=== PATIENT | male | born 1945 | race Caucasian/White ===

== ENCOUNTER 2025-07-07 14:48 | Outpatient (CLI) | payer MEDICARE, BC, SELFPAY | END 2025-07-07 14:49 | disposition home or self-care (01) | PROVIDERS: Visit Provider Emergency Medicine Emergency Medical Services | DX: S09.90XA Unspecified injury of head, initial encounter (principal); W17.89XA Other fall from one level to another, initial encounter; Y92.481 Parking lot as the place of occurrence of the external cause | CPT/HCPCS: A0425; A0429 ==

== ENCOUNTER 2025-07-07 15:19 | Emergency (ER) | payer MEDICARE, BC, SELFPAY ==
[2025-07-07 15:23] VITALS: BP 124/79; PULSE 89; RESP 16; TEMP 36.6; O2SAT 96; BMI 24.4
--- NOTE | 2025-07-07 15:23 | CRLHL7_ITS ---
For Patients: As a result of the Century Cures Act, medical imaging exams and procedure reports are released immediately into your electronic medical record. You may view this report before your referring provider. If you have questions, please contact your health care provider. INDICATION: Trauma. TECHNIQUE: CT head without contrast. COMPARISON: None. FINDINGS: CSF spaces: Within normal limits for age. Brain parenchyma and extra-axial spaces: The garcía-white differentiation is normal. No sign of mass, hemorrhage, or midline shift. No extra-axial fluid collection. Skull base and calvarium: Right parieto-occipital scalp hematoma. The visualized paranasal sinuses and mastoid air cells demonstrate no acute or significant findings. The visualized orbits are grossly unremarkable. No skull fractures. IMPRESSION: Right parieto-occipital scalp hematoma. No acute intracranial abnormality. Please note that all CT scans at this facility use dose modulation, iterative reconstruction, and/or weight-based dosing when appropriate to reduce radiation dose to as low as reasonably achievable. Dictated by Uli Glover MD @ 07/07/2025 4:09:08 PM (Electronically Signed)
--- NOTE | 2025-07-07 15:23 | CRLHL7_ITS ---
For Patients: As a result of the Century Cures Act, medical imaging exams and procedure reports are released immediately into your electronic medical record. You may view this report before your referring provider. If you have questions, please contact your health care provider. Indication: Fall, head trauma. Technique: Noncontrast CT of the cervical spine with multiplanar reconstruction utilizing bone and soft tissue algorithms. Comparison: None available. Findings: No acute fracture or traumatic subluxation. No lytic or blastic lesion. Small gas-filled cavity within C6 vertebral body which is likely degenerative in etiology. Grade 1 3 mm anterolisthesis of C4 on C5. Vertebral body heights are maintained. Multilevel disc height loss is most pronounced from C5-C7. Mild spinal canal stenosis at C5-C6 results from disc bulging and endplate osteophytic ridging. Multilevel neural foraminal narrowing is moderate-severe on the left at from C2-C5 and bilaterally at C5-C6 and C6-C7. Impression: 1. No acute fracture or traumatic subluxation. 2. Advanced cervical spondylosis with mild spinal canal stenosis at C5-C6 and multilevel moderate-severe neural foraminal narrowing. Please note that all CT scans at this facility use dose modulation, iterative reconstruction, and/or weight-based dosing when appropriate to reduce radiation dose to as low as reasonably achievable. Dictated by Gautam Campbell MD @ 07/07/2025 4:14:14 PM (Electronically Signed)
--- NOTE | 2025-07-07 15:35 | ED.HEATRA ---
HPI - Head Injury General Date Seen: 07/07/25 Chief complaint: Head Injury/Pain Stated complaint: Fell Time Seen by Provider: 07/07/25 15:22 Source: patient and EMS Mode of arrival: EMS Limitations: no limitations History of Present Illness HPI Narrative: Patient is a 79-year-old male with no pertinent medical history who only takes a baby aspirin daily presenting to the emergency department via EMS after hitting his head. He states he was loading something in the back of his [place] when he took a step backwards and stepped off the tailgate. This causing the fall straight onto his back and his head on concrete. He was able get up after this. Denies any lightheadedness or dizziness before or after the fall. He states he feels fine currently. Denies any neck pain. Denies a headache. Denies weakness, numbness, vision changes, chest pain, shortness of breath, abdominal pain, extremity pain. He states he has no other concerns at this time. States he only came to emergency department because EMS stated he had large laceration on the back of his head that needed sutures. Related Data Home Medications ?Medication ?Instructions ?Recorded ?Confirmed aspirin 81 mg tablet,delayed 81 mg PO DAILY 07/07/25 07/07/25 release (Adult Low Dose Aspirin) hydrochlorothiazide PO 07/07/25 Allergies Allergy/AdvReac Type Severity Reaction Status Date / Time No Known Drug Allergies Allergy Verified 07/07/25 15:25 Review of Systems Status of ROS: Reports: 10 or more systems reviewed and unremarkable except as noted in History and below Exam Narrative: Exam Narrative: Const: Well-nourished, Well-developed, in no distress Eyes: PERRL, no conjunctival injection, and symmetrical lids HENT: Atraumatic external nose and ears. Moist mucous membranes. No palpable skull fractures. Large hematoma on right upper occiput region of skull. 6.5 cm laceration on back of head. Neck: Symmetric, trachea midline, No thyromegaly. CVS: RRR, No murmurs or gallops. Peripheral pulses 2+ and equal in all extremities RESP: Unlabored respiratory effort. Clear to auscultation bilaterally. GI: Nontender/Nondistended, No rebound or guarding. MSK:Extremities w/o deformity, Normal Active ROM, no spinal tenderness Skin: Warm, Dry. No rashes or lesions. Neuro: Normal Muscle tone, No focal neurological deficits. Psych: Awake, Alert, & Oriented x3. Appropriate mood and affect. Const: Vital Signs, click to edit/add: Vital Signs - 24 hr 07/07/25 15:23 Temperature 97.9 F Pulse Rate [Pulse Oximeter] 89 Respiratory Rate 16 Blood Pressure [Ri ght Upper Arm] 124/79 Pulse Oximetry 96 Oxygen Delivery Me thod Room Air Course Vital Signs Vital signs: Initial Vital Signs Temperature 97.9 F 07/07/25 15:23 Temperature Source Temporal Artery Scan 07/07/25 15:23 Pulse Rate 89 07/07/25 15:23 Respiratory Rate 16 07/07/25 15:23 Blood Pressure 124/79 07/07/25 15:23 Blood Pressure Mean 94 07/07/25 15:23 Blood Pressure Position Sitting 07/07/25 15:23 Pulse Oximetry 96 07/07/25 15:23 Oxygen Delivery Method Room Air 07/07/25 15:23 Vital Signs Temperature 97.9 F 07/07/25 15:23 Pulse Rate 89 07/07/25 15:23 Respiratory Rate 16 07/07/25 15:23 Blood Pressure 124/79 07/07/25 15:23 Pulse Oximetry 96 07/07/25 15:23 Oxygen Delivery Method Room Air 07/07/25 15:23 Temperature 97.9 F 07/07/25 15:23 Pulse Rate 89 07/07/25 15:23 Respiratory Rate 16 07/07/25 15:23 Blood Pressure 124/79 07/07/25 15:23 Pulse Oximetry 96 07/07/25 15:23 Oxygen Delivery Method Room Air 07/07/25 15:23 MDM - Head Injury MDM Narrative Medical decision making narrative: Patient is a 79-year-old male presenting after a fall. He has laceration hematoma on the back his head. No midline spinal tenderness. Is not having any neck pain. Is not having any tenderness to rest of his extremities, chest, abdomen. Due to his age I will do CT scan of his head and cervical spine. I do not believe lab work is necessary at this time. CT scans reviewed by myself and the radiologist showed no acute concerning abnormalities. Laceration repair was done. Seven sutures were placed. He tolerated the procedure well. See procedure note. Imaging Data CT scan head: Attestation: I have reviewed the pertinent imaging results. Radiologist's impression: Right parieto-occipital scalp hematoma. No acute intracranial abnormality. Please note that all CT scans at this facility use dose modulation, iterative reconstruction, and/or weight-based dosing when appropriate to reduce radiation dose to as low as reasonably achievable. Dictated by Uli Glover MD @ 07/07/2025 4:09:[address] scan cervical spine: Attestation: I have reviewed the pertinent imaging results. Radiologist's impression: 1. No acute fracture or traumatic subluxation. 2. Advanced cervical spondylosis with mild spinal canal stenosis at C5-C6 and multilevel moderate-severe neural foraminal narrowing. Please note that all CT scans at this facility use dose modulation, iterative reconstruction, and/or weight-based dosing when appropriate to reduce radiation dose to as low as reasonably achievable. Dictated by Gautam Campbell MD @ 07/07/2025 4:14:14 PM Discharge Plan Discharge Clinical Impression: Laceration Closed head injury Qualifiers: Encounter type: initial encounter Qualified Code(s): S09.90XA - Unspecified injury of head, initial encounter Patient Disposition: Home, Self-Care Condition: Stable Instructions: Head Injury (DC) Additional Instructions: Follow-up with your primary care provider or urgent care in the next 7 days to have the 7 sutures removed. For next 6 months, once sutures are removed, whenever you go outside put a dab of sunscreen over the laceration site to improve scar appearance. Topical antibiotics are not necessary at this time. Patient can shower but do not submerge the laceration until sutures are removed Prescriptions: No Action hydrochlorothiazide PO aspirin [Adult Low Dose Aspirin] 81 mg tablet,delayed release (DR/EC) 81 mg PO DAILY Follow Up/Referrals: Provider,Not a Local [Primary Care Provider, Family Practice] Stand Alone Forms: [facility] Info Instructions Procedures Laceration Scalp: Name of person performing procedure: Ben Moreno Site: scalp Side (If applicable): right Size (cm): 6.5 Description: irregular Depth: simple, single layer Local Anesthetic: lidocaine 1% Amount of anesthesia used (mL): 5 Pre-repair: wound explored, irrigated extensively and deep structures intact Skin layer closed with: nylon Size (cm): 4-0 Number of sutures: 7 Technique: simple, interrupted Estimated blood loss (if any): none Conclusion: patient tolerated procedure
--- OUTSIDE RECORDS SUMMARY | 2025-07-07 15:44 | XMS_ITS | Clinical Summary ---
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 Primary Care Provider Source Comments Patient records contain information from all sites at [facility]. For routine questions regarding patient records, call [phone] during business hours, M-F 8:00 AM - 5:00 PM Central Time. Record requests for emergency care only can be directed to [phone] at any time.[facility] Allergies Active Allergy Reactions Criticality Noted Date Comments Lisinopril Cough 02/08/2022 Medic[address] tablet Take 1 tablet by mouth daily. 06/03/2016 Active pravastatin (PravachoL) 20 mg tablet TAKE 1 TABLET BY MOUTH AT BEDTIME 90 tablet 3 09/29/2024 Active triamterene-hyd roCHLOROthiazid e (Dyazide) 37.5-25 mg per capsule Take 1 capsule by mouth once daily 90 capsule 3 09/29/2024 Active Active Problems Patient Care Coordination No te Formatting of this note migh t be different from the original. MIRZA on file for Paulyesteban Wiley, Patients spouse. MIRZA good for life unless patient revokes. 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 07/19/2021 Overview (06/29/2018): MRSA Cataract 06/10/2016 07/02/2019 Amnesia Transient Global 06/03/2016 Cancer Colon Family History 06/03/2016 07/02/2019 Fatigue 06/03/2016 07/02/2019 Immunizations Immunization Administration Dates Next Due HZV (ZOSTAVAX) 01/08/2012 Influenza high dose QV(65 ye ars or older) (PF) 07/25/2023,07/19/2022,07/19/2021,2019 Influenza, Unspecified 06/26/2017,06/03/2016, PCV13 05/03/2015 PPSV23 03/21/2014 RZV (SHINGRIX) 07/21/2020,08/09/2019 SARS-COV-2 (COVID-19) - MODERNA(Discontinued) 01/01/2021,11/30/2020 SARS-COV-2 (COVID-19) - PFIZ ER (Discontinued)(12 years or older) 02/11/2023(Deferred: Patient decision) Td (Adult), adsorbed 06/25/2012 Td, (Adult) Unspecified 01/02/1993 Tdap 08/09/2017,11/20/2007 influenza trivalent high dos e (HD)(PF) 07/28/2024,07/02/2019,06/29/2018 Family History Medical History Relation Name Comments Hypertension Daughter 1 Mckenna Thyroidectomy Daughter 1 Mckenna Hypertension Daughter 2 Janiya Coronary artery disease Father Emanuel Moody Wiley He art valve replacement in 1984, in 1994 from heart attack. Heart attack Father Emanuel Wiley Sleep apnea Father Emanuel Wiley Transient ischemic attack Father's Sister Alejandra Farris Carlie) Cadwallader Colon cancer Maternal Grandfather St. Lucie Denler Heart attack Maternal Grandmother Ashlyn Arthritis Mother Cecilia Weiner (Jose Rler) Saurabh Stroke Mother Cecilia Weiner (Jose Rler) Saurabh Heart attack Paternal Grandfather Justus Stroke Paternal Grandmother Josaphine Hypertension Sister 1 Yarelis Coronary artery disease Sister 2 Eladia Flores (Saurabh) Ray Heart stent in 2919, age 74. Hypertension Sister 2 Eladia Flores (Wiley ) Ray Stent placement Sister 2 Eladia Flores (Wiley ) Ray Coronary artery disease Sister 3 Yarelis A (Wiley) Rohloff Heart attack 08/2023, age 67; carotid artery cleaned 09/2023. Heart attack Sister 3 Yarelis A (Gile s) Rohloff Hypertension Sister 3 Yarelis A (Gile s) Rohloff Hypertension Son Bob Stroke Son Bob Relation Name Status Comments Daughter 1 Mckenna Alive Daughter 2 Janiya Alive Father Emanuel Moody Wiley (Age 72) Father's Brother Dylan Father's Sister Alejandra Farris (Saurabh) Cadkarolyn Maternal Grandfather St. Lucie Jose Ryesi Maternal Grandmother Ashlyn Mother Cecilia Weiner (Vahe) Saurabh Alive Paternal Grandfather Justus Paternal Grandmother Lenchophine Sister 1 Yarelis Alive Sister 2 Eladia Flores (Saurabh) Ray Alive Sister 3 Yarelis Ware (Wiley) Hiraloff Alive Son Bob Alive Social History Tobacco Use Types Packs/Day Years Used Date Smoking Tobacco: Never Smokeless Tobacco: Never Tobacco Cessation:Counseling Given: Not Answered Alcohol Use Standard Drinks/Week Comments Yes 1 (1 standard drink = 0.6 oz pur e alcohol) one time monthly [facility] Utilities Answer Date Recorded In the past 12 months has e Doist, gas, oil, or water [employer] threatened to shut off services in your home? No 07/23/2024 Humiliation, Afraid, Rape, and Kick questionnair e Answer Date Recorded Within the last year, have y ou been afraid of your partner or ex-partner? No 02/04/2023 Within the last year, have y ou been humiliated or emotionally abused in other ways by your partner or ex-partner? No Within the last year, have y ou been kicked, hit, slapped, or otherwise physically hurt by your partner or ex-partner? No 02/04/2023 Within the last year, have y ou been raped or forced to have any kind of sexual activity by your partner or ex-partner? No 02/04/2023 Hunger Vital Sign Answer Date Recorded Within the past 12 months, y ou worried that your food would run out before you got the money to buy more. Never true 07/23/20 24 Within the past 12 months, t he food you bought just didn't last and you didn't have money to get more. Never true 07/23/2024 PRAPARE - Transportation Answer Date Re corded In the past 12 months, has l ack of transportation kept you from medical appointments or from getting medications? No 07/09 In the past 12 months, has l ack of transportation kept you from meetings, work, or from getting things needed for daily living? No 07/23/2024 Depression Answer Date Recor ded PHQ-9 Total Score (max 27) 0 02/08 Housing Stability Answer Date Recorded What is your living situation today? I have a [facility] place to live 07/23/2024 Education Answer Date Recorded What is the highest level of school you have completed or the highest degree you have received? Bachelor's degree (e.g., BA, AB, BS) 07/09/2019 Sex and Gender Information Value Date Recorded Sex Assigned at Male 08/09/2017 11:05 AM [employer] WORK[employer] Legal Sex Male 11:13 PM [employer] Gender Identity Male 08/09/2017 11:05 AM [employer] Sexual Orientation Straight 08/09/2017 11 :05 AM [employer] Occupation Industry Job Start Date Job End Date Not on file Not on file Not on file Not on file Last Filed Vital Signs Vital Sign Reading Time Taken Comments Blood Pressure 114/75 12/23/2024 7:56 AM CDT Pulse 73 12/23/2024 7:56 AM CDT Temperature 35.8 C (96.4 F) 12/23/2024 7:56 AM CDT Respiratory Rate 16 12/23/2024 7:56 AM CDT Oxygen Saturation 98% 02/11/2023 8:30 AM CDT Inhaled Oxygen Concentration - - Weight 80.9 kg (178 lb 5.6 oz) 12/23/2024 7:56 A M CDT Height 177.3 cm (5' 9.8) 12/23/2024 7:56 AM CDT Body Mass Index 25.74 12/23/2024 7:56 AM CDT Plan of Treatment Upcoming Encounters Date Type Department Care Team (Late st Contact Info) Description 07/28/2025 8:50 AM [employer] Appointment Department of Laboratory Medicine in [place], [place] [address] [place] [address] Gurmeet Murphy, P.A.-C. [address] [place] [address] 08/03/2025 1:00 PM [employer] Office Visit Department of Family Medicine, [facility], in [place], [place] [address] [place] [address] Gurmeet Murphy, P.A.-C. [address] [place] [address] Health Maintenance Due Date Last Done Comments RSV vaccine - (32-36 weeks) or 50+ years (1 - 1-dose 75+ series) 11/30/2022 COVID-19 Vaccine ( - season) 2025 01/01/2021, 11/30/2020 Influenza Vaccine (#1) 2025 , 07/25/2023, 07/19/2022, Additional history exists Creatinine Level (Kidney Function Test) 07/26/2025 07/26/2024, 07/21/2023, 07/19/2022, Additional history exists Potassium Level 07/26/2025 07/26/2024, 07/09, 07/19/2022, Additional history exists Sodium Level 07/26/2025 07/26/2024, 07/09, 07/19/2022, Additional history exists Visit: Chronic Disease, age 18+ 07/28/2025 07/28/2024 Visit: Medicare Annual Wellness 07/29/2025 07/28/2024 Office Visit for Blood Pressure Check / Re-check 12/23/2025 12/23/2024 DTaP,Tdap,and Td Vaccines (4 - Td or Tdap) 08/09/2027 08/09/2017, 06/25/2012, 11/20/2007, Additional history exists Pneumococcal vaccine (50+ years) Completed 05/03/2015, 03/21/2014 Hepatitis C Screening Completed 06/29/2019 Zoster Vaccines Completed 07/21/2020, 10/2018, 01/08/2012 Colonoscopy Discontinued 02/05/2023, 01/06/2013 Colorectal Cancer Screening Discontinued Colorectal Cancer Surveillance Discontinued Depression Screening (Annual PHQ-2) Completed 12/23/2024, 12/22/2024 Fall Risk Screen (Annual) Completed 12/23/[address] Colonography Discontinued Cologuard Discontinued FIT Discontinued IPV Vaccines Aged Out No longer eligi ble based on patient's age to complete this topic Goals Goal Patient Goal Type Associated Problems Recent Progress Patient-Stated? Author Eat a balanced, healthy diet Diet No Marlene Maynard R.N. Note: Continue 30 minutes 3x a week Exercise No Marlene Maynard R.N. Note: Continue Medical Devices Implanted Type Area Chocolate Refining Roller Device Identifier Shelf Expiration Date Model / Serial / Lot Shoulder Implant-07/04 Implanted: by Darrell Corley M.D. (Quantity not on file) Shoulder Implant Right: Shoulder [employer] / / Procedures Procedure Name Priority Date/Time Associated Diagnosis Comments COMPREHENSIVE METABOLIC PANEL, S/P Routine 07/26/2024 8:34 AM [employer] Hypertension Essential Primary Hyperlipidemia Screening Examination Prostate Cancer HCV AB SCRN W/REFLEX TO HCV PCR, S Routine 06/29/2019 8:53 AM CDT Screening Test Laboratory from Last 3 Months or Most Recently Relevant to Health Maintenance Results * Comprehensive Metabolic Panel (07/26/2024 8:34 AM [employer] WORK[employer]) Pathologist [facility] Potassium, P 4.1 3.6 - 5.2 mmol/L 07/26/2024 2:49 PM [employer] WORK[employer] OWAT Sodium, P 143 135 - 145 mmol/L 07/26/2024 2:49 PM [employer] OWAT Chloride, P 105 98 - 107 mmol/L 07/26/2024 2:49 PM [employer] OWAT Bicarbonate, P 26 22 - 29 mmol/L 07/26/2024 2:49 PM [employer] OWAT Anion Gap, P 12 7 - 15 07/26/2024 2:49 PM [employer] WORK[employer] OWAT BUN (Blood Urea Nitrogen), P 20 8 - 24 mg/dL 07/26/2024 2:49 PM [employer] WORK[employer] OWAT Creatinine 1.16 0.74 - 1.35 mg/dL 07/26/2024 2:49 PM [employer] WORK[employer] OWAT Estimated GFR (eGFR) 65 >=60 mL/min/BS A 07/26/2024 2:49 PM [employer] WORK[employer] OWAT Comment: Estimated GFR calculated using the 2020 CKD_EPI creatinine equation. Calcium, Total, P 8.9 8.8 - 10.2 mg/dL 07/26/2024 2:49 PM [employer] OWAT Glucose, P 108 70 - 140 mg/dL 07/26/2024 2:49 PM [employer] OWAT Protein, Total, P 7.2 6.3 - 7.9 g/dL 07/26/2024 2:49 PM [employer] OWAT Albumin, P 4.3 3.5 - 5.0 g/dL 07/26/2024 2:49 PM [employer] OWAT Aspartate Aminotransferase (AST), P 26 8 - 48 U/L 07/26/2024 2:49 PM [employer] OWAT Alkaline Phosphatase, P 80 40 - 129 U/L 07/26/2024 2:49 PM [employer] OWAT Alanine Aminotransferase (ALT), P 16 7 - 55 U/L 07/26/2024 2:49 PM [employer] WORK[employer] OWAT Bilirubin, Total, P 0.5 0.0 - 1.2 mg/dL 07/26/2024 2:49 PM [employer] WORK[employer] OWAT Blood (Blood, Venous) 07/26/2024 8:34 AM SOC[employer] WORK[employer]ERS 07/26/2024 1:16 PM [employer] Gurmeet Murphy P.A.-C. LAB BLOOD ADD-ON Final Result [facility] [address] [place] [address], [place] OWAT [facility] [place] [address] [place] [address] * HCV Ab Scrn w/Reflex to HCV PCR, Serum (06/29/2019 8:53 AM CDT) HCV Ab Screen, S Negative Negative 06/30/2019 9:50 AM CDT [facility] Comment:Doozvy-rl-siclyx rat io is <1.00. Blood (Blood, Venous) 06/29/2019 8:53 AM CDT 06/30/2019 8:21 AM CDT us Sidra Edward M.D. LAB MICROBIOLOGY - BLOOD ORDERAB LES Final Result Performing Organization Address City/[facility]/ZIP Co de Phone Number [facility] [address] [place] [address] [facility] Dept. of Laboratory Medicine and Pathology [address] [place] [address] from Last 3 Months or Most Recently Relevant to Health Maintenance Insurance MEDICARE [facility] [[email or web address]] Advance Directives For more information, please contact: [phone] Documents on File Type Date Recorded Patient Layout Technician Adenike anatmark Advance Directives 08/10/2019 3:52 PM Heal th Care Directive Healthcare Agents on File Name Relationship Healthcare Agent Relationsca p Communication Pauly Wiley Spouse Health Care Agent [email or web address] Janiya Marroquin Daughter First Alternate Health Care Agent Care Teams Wire Mill Operator Relationship Specialty Start Date End Date Gurmeet Murphy P.A.-C. [address] [place] [phone] PCP - General Family Medicine 05/03/20
--- OUTSIDE RECORDS SUMMARY | 2025-07-07 15:44 | XMS_ITS | Clinical Summary ---
Author Organization [facility] Address [address] [place] [address] Care Team Providers Care Strip Tank Tender Name Role Phone Gurmeet Murphy Primary Care Provider [phone] Allergies Active Allergy Reactions Criticality Noted Date Comments Lisinopril Cough 01/30/2023 Medications pravastatin (PRAVACHOL) 10 mg tablet Take 20 mg by mouth once daily with evening meal. Active triamterene-hyd rochlorothiazid e, 37.5-25 mg, (DYAZIDE) 37.5-25 mg capsule Take 1 Capsule by mouth once daily. 07/19/2022 Active aspirin 81 mg cap Take by mouth once daily. Active glucosamine/cho ndr miller A sod (OSTEO BI-FLEX ORAL) Take 1,500 mg by mouth once daily. Active Active Problems Problem Noted Date Diagnosed Date Primary osteoarthritis of right shoulder 020 Traumatic complete tear of left rotator cuff Immunizations Immunization Administration Dates Next Due Influenza, High-dose Inactivated 06/03/2016 Influenza, IIV4 (=>6mos) MDV 06/26/2017,07/26/20 14 Pneumococcal Poly,23-Valent (Pneumovax) 03/21/20 14,02/19/2014 Pneumococcal conj 13-Valent (Prevnar 13) 015 Td (Age >=7 Years) 01/02/1993 Tdap 06/25/2012,11/20/2007 Zoster (Zostavax-ZVL, live) 01/08/2012 Social History Tobacco Use Types Packs/Day Years Used Date Smoking Tobacco: Never Smokeless Tobacco: Never Tobacco Cessation:Counseling Given: No Alcohol Use Standard Drinks/Week Comments Yes 0 (1 standard drink = 0.6 oz pur e alcohol) 1 month Sex and Gender Information Value Date Recorded Sex Assigned at Not on file 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 Gender Identity Not on file Sexual Orientation Not on file Obstetrics History Last Filed Vital Signs Vital Sign Reading Time Taken Comments Blood Pressure 108/62 02/05/2023 8:45 AM CDT Pulse 68 02/05/2023 8:45 AM CDT Temperature 36.3 C (97.4 F) 02/05/2023 8:00 AM CDT Respiratory Rate 16 02/05/2023 8:45 AM CDT Oxygen Saturation 95% 02/05/2023 8:45 AM CDT Inhaled Oxygen Concentration - - Weight 79.6 kg (175 lb 6.4 oz) 02/05/2023 6:45 A M CDT Height 177.5 cm (5' 9.88) 01/22/2023 11:05 AM C DT Body Mass Index 25.25 01/22/2023 11:05 AM CDT Plan of Treatment Health Maintenance Due Date Last Done Comments Depression screening for age 12+ 1959 BMI (ht and wt on same day) for age 18+ 11/30/1965 Hepatitis C screening for ag e 18-79 11/30/1965 Zoster (shingles) series for age 50+ (2 of 3) 03/04/2012 01/08/2012 Tetanus booster 06/25/2022 06/25/2012, 11/20/2007, 01/02/1993 RSV vaccine for adults or (1 - 1-dose 75+ series) 11/30/2022 Influenza Vaccine (#1) 2025 7, 06/03/2016, 07/26/2014 Pneumococcal series for age 50+ Completed 05/03/2015, 03/21/2014, 02/19/2014 Hepatitis B series for 19+ Aged Out N o longer eligible based on patient's age to complete this topic Medical Devices Implanted Type Area Seed Packer Device Identifier Shelf Expiration Date Model / Serial / Lot Comprehensive Reverse Shoulder Central Screw Implanted:Qty: 1 on 07/04/2020 by Darrell Corley MD at [facility] Imp.,Scre ws & Plates Right: Shoulder BI[employer] 04/20/2030 [id number] / / [id number] Comprehensive Shoulder System Primary Shoulder Stem Micro Length Porous Plasma Implanted:Qty: 1 on 07/04/2020 by Darrell Corley MD at [facility] Total Joint Right: Shoulder [employer] 03/01/2029 [id number] / / [id number] Ancr Soft Tissue 4.75mm X 19mmswivelock - [id number] Implanted:Qty: 1 on 02/01/2020 by Darrell Corley MD at [facility] Left: Shoulder [employer] 07/08/2023 [id number]# / / [id number] Ancr Soft Tissue 4.75mm X 19mmswivelock - [id number] Implanted:Qty: 1 on 02/01/2020 by Darrell Corley MD at [facility] Left: Shoulder [employer] 08/07/2022 [id number]# / / [id number] Comprehensive Reverse Shoulder System Mini Humeral Tray +10mm Thickness, +0mm Taper Offset 40mm Diameter Implanted:Qty: 1 on 07/04/2020 by Darrell Corley MD at [facility] Right: Shoulder [employer] 05/08/2029 [id number] / / [id number] Bearing Hum 36mm Comprehensive Std Prlng - [id number] Implanted:Qty: 1 on 07/04/2020 by Darrell Corley MD at [facility] Right: Shoulder [employer] 03/28/2025 [id number]# / / [id number] Baseplate Hum 25mm Comprehensive - [id number] Implanted:Qty: 1 on 07/04/2020 by Darrell Corley MD at [facility] Right: Shoulder [employer] 02/15/2030 [id number]# / / [id number] Screw Shldr [id number] Comprehensive Fa Lock - [id number] Implanted:Qty: 1 on 07/04/2020 by Darrell Corley MD at [facility] Right: Shoulder [employer] 04/18/2030 [id number]# / / [id number] Screw Shldr 4.07v99gi Comprehensive Fa Lock - [id number] Implanted:Qty: 1 on 07/04/2020 by Darrell Corley MD at [facility] Right: Shoulder [employer] 04/18/2030 [id number]# / / [id number] Glenosphere Od36mm Versa-Dialco Cr - [id number] Implanted:Qty: 1 on 07/04/2020 by Darrell Corley MD at [facility] Right: Shoulder [employer] 04/17/2030 [id number]# / / [id number] Screw Shldr 4.95m93pz Comprehensive Fa Lock - [id number] Implanted:Qty: 1 on 07/04/2020 by Darrell Corley MD at [facility] Right: Shoulder [employer] 04/20/2030 [id number]# / / [id number] Screw Shldr 4.59k63ca Comprehensive Fa Lock - [id number] Implanted:Qty: 1 on 07/04/2020 by Darrell Corley MD at [facility] Right: Shoulder [employer] 03/27/2029 [id number]# / / [id number] Explanted Type Area Seed Packer Device Identifier Shelf Expiration Date Model / Serial / Lot Compnt Shldr Rev 9in Steinmann Pins - [id number] Explanted:Qty: 1 on 07/04/2020 by Darrell Corley MD at [facility] Right: Shoulder [employer] 09/28/2029 [id number]# / / [id number] Additional Health Concerns Infection Onset Date Last Indicated MRSA Clearance Comment:If >12 months since positive culture, precautions can be discontinued if patient has no MRSA risk factors. 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, 09/18/2017 right finger exclusions for contact precaution discontinuation (if > 12 months since positive culture): resides in acute/[facility] care, receiving hemodialysis, has chronic open wounds/skin damage, has long-term percutaneous indwelling medical devices Exclusions for nares collection (if <12 months since positive culture) include all of the previous exclusions plus patients on antibiotics 7 days prior to collection 01/24/2020 01/24/2020 Insurance MEDICARE PART B HB ONLY MEDICARE PB ONLY [facility] FED EMP MEDICARE PART A HB ONLY Advance Directives * Full Code (Latest Code Status on File) Date Activated Date Inactivated Comments 02/05/2023 5:56 AM 02/05/2023 10:53 AM Question Answer Comments Code Status Discussion: Not Discussed * Full Code Date Activated Date Inactivated Comments 07/04/2020 6:20 AM 07/05/2020 2:06 PM Question Answer Comments Code Status Discussion: Not Discussed * Full Code Date Activated Date Inactivated Comments 02/01/2020 10:19 AM 02/01/2020 5:10 PM Question Answer Comments Code Status Discussion: Not Discussed Care Teams Strip Tank Tender Relationship Specialty Start Date End Date Gurmeet Murphy PA PCP - General Physician Line Crew Supervisor 01/15/23
--- OUTSIDE RECORDS SUMMARY | 2025-07-07 15:44 | XMS_ITS | Encounter Summary ---
Author Organization [facility] Address [address] [place] [address] Care Team Providers Care Diesel Roller Operator Name Role Phone Gurmeet Murphy P.A.-C. Primary Care Provider Encounter Details Date Type Department Care Team (Late st Contact Info) Description 06/10/2016 Historical Ophthalmology [facility] Micah Bennett Jr., M.D. [address] [place] [phone] Social History Tobacco Use Types Packs/Day Years Used Date Smoking Tobacco: Never Assessed Sex and Gender Information Value Date Recorded Sex Assigned at Male 08/09/2017 11:05 AM OFFICE ASSISTANT Legal Sex Male 11:13 PM OFFICE ASSISTANT Gender Identity Male 08/09/2017 11:05 AM OFFICE ASSISTANT Sexual Orientation Straight 08/09/2017 11 :05 AM OFFICE ASSISTANT documented as of this encounter Progress Notes * Micah Bennett M.D. 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 [address] [place] [phone] 08/03/2025 1:00 PM OFFICE ASSISTANT Office Visit Department of Family Medicine, [facility], in [place], [place] [address] [facility] [phone] Gurmeet Murphy P.A.-C. [address] [place] [phone] documented as of this encounter Visit Diagnoses Not on filedocumented in this encounter Additional Health Concerns Infection Onset Date Last Indicated Resolved Time MRSA 08/09/2017 09/18/2017 05/26/2020 4:58 AM CDT COVID19 Pending 01/28/2020 01/29/2020 01/30/2020 2 :57 AM CDT COVID19 Pending 07/01/2020 07/01/2020 07/02/2020 1 2:54 AM CDT documented as of this encounter Care Teams Diesel Roller Operator Relationship Specialty Start Date End Date Gurmeet Murphy P.A.-C. [address] [place] [phone] PCP - General Family Medicine 05/03/20 documented as of this encounter
== END 2025-07-07 17:43 | disposition home or self-care (01) ==
PROVIDERS: Emergency Provider Student in an Organized Health Care Education/Training Program
DX: S09.90XA Unspecified injury of head, initial encounter (principal); S01.01XA Laceration without foreign body of scalp, initial encounter; V58.4XXA Person boarding or alighting a pick-up truck or van injured in noncollision transport accident, initial encounter
CPT/HCPCS: 12032; 70450; 72125; 99284